=== PATIENT | female | born 1965 | race Caucasian/White ===

== ENCOUNTER → 2018-06-26 | Outpatient (CLI) | payer BC ==
--- NOTE | 2018-06-26 11:35 | KCIC ---
THYROID ULTRASOUND History: Adult hypothyroidism Comparison: None. Findings: Multiple sonographic images of the thyroid gland are submitted. Right lobe measured 2.7 x 1.1 x 1.1 CM. Left lobe measured 2.7 x 0.9 x 1.1 cm. Isthmus measured 0.9 cm in thickness. Thyroid parenchyma is heterogeneous bilaterally, not associated with significant hypervascularity. No discrete thyroid nodularity is demonstrated. Impression: 1. No discrete thyroid nodularity is demonstrated. There is nonspecific heterogeneity of the thyroid parenchyma bilaterally, could obscure smaller nodule. Electronically signed by: Ivan Delarosa MD (06/26/2018 11:32 AM) [id number]
== END | disposition home or self-care (01) ==
LOC: KCIC US 10:47
PROVIDERS: ATTEND Nurse Practitioner Family
DX: E03.9 Hypothyroidism, unspecified (principal); E04.1 Nontoxic single thyroid nodule
CPT/HCPCS: 76536